=== PATIENT | female | born 1980 | race Caucasian/White ===

== ENCOUNTER → 2018-04-26 | Day surgery (SDC) | payer OTHER ==
[~2018-04-26] MED LIST: Albuterol/Ipratropium 3.0-0.5 MG/3 ML Neb Soln NEB ONE; Bupivacaine 0.5% 50 ML MDV ONE; Dextrose 5%-Lactated Ringers 1,000 ML IV SCH; Ibuprofen 600 MG Tab PO ONE; Lidocaine 1% with EPINEPHrine 1:100,000 50 ML MDV ONE; Midazolam 1 MG/ML 2 ML SDV ONE; Propofol 200 MG/20 ML SDV ONE; fentaNYL 100 MCG/2 ML SDV ONE
[2018-04-26] MEDS: ceFAZolin 2 GM in Premix Bag 1 BAG IV ONE ×2 (08:22→09:50)
--- NOTE | 2018-05-01 14:09 | OR ---
DATE OF PROCEDURE: 04/26/2018 PREOPERATIVE DIAGNOSIS: Probable lymphadenopathy, right inguinal area. POSTOPERATIVE DIAGNOSIS: Subfascial mass, right inguinal area. OPERATIVE PROCEDURE: Excision of subfascial mass, right inguinal area ([id number]). ANESTHESIA: Local plus IV sedation. SURGEON: Bennett Chopra MD POLYTECHNIC REGISTRAR: KELSI Genao. INDICATION FOR PROCEDURE: This is a 38-year-old status post previous excision of melanoma from her right lower back, presenting with a mass effect in the right inguinal area. This clinically appears to be most likely lymph node. It is somewhat painful and obviously suspicious for potential site of metastatic disease in that area. The size of the lesion is roughly the size of a peanut and, given this, a direct excisional biopsy appears to be most appropriate. Should this come back as a metastatic melanoma, we would then stage the patient with a CT scan of the chest, abdomen and pelvis, and a PET scan, and if no disease outside of the inguinal and/or iliac areas on the right side is identified, full lymph node dissection will subsequently be performed. Frozen section will not be obtained, as present standard of care within the pathologic community is not to do frozen sections on potentially metastatic melanomas or lymph nodes, due to some occasional false-positive reports. Potential risks otherwise including bleeding and infection were reviewed, and the patient wishes to proceed. DETAILS OF PROCEDURE: The patient was taken to the operating room and placed in the supine position. The area of concern had been marked on the skin level in the preoperative area. The lower abdomen and groin areas were then prepped and draped. After IV sedation was administered, anesthetized with 1% lidocaine mixed with Marcaine, a small incision over the palpable mass was then made and carried down through the skin and subcutaneous tissue. The mass appeared to be below the level of Dakota's fascia, and this was incised. The mass was then excised with a small rim of normal-appearing fat around it. Again, the lesion itself, upon its removal, was around 2 cm including the lesion and margin dimensions. The incision was then closed with some 3-0 and 4-0 Vicryl stitch deep and a 5-0 Vicryl subcuticular stitch. Dressing was applied. The patient was taken to the recovery room in a satisfactory condition. Of note, off the field, at the end of the procedure, the lesion was bisected. This did not appear to have any pigment within it and maybe something other than metastatic disease, i.e. could be some sort of fat necrosis in that area. We will await the pathologic findings and not proceed with any further staging at this point, awaiting the pathology on this resected specimen. Bennett Chopra MD /[id number]
== END ==
LOC: JP.SDS 07:34
PROVIDERS: ATTEND Surgery
DX: R59.0 Localized enlarged lymph nodes (principal); J45.909 Unspecified asthma, uncomplicated; E66.9 Obesity, unspecified; Z88.0 Allergy status to penicillin
CPT/HCPCS: 81025; 88305; A9270-GY; J0690; J2250; J2704; J3010; J3490; J7042; J7620-GY

== ENCOUNTER 2018-06-10 18:16 | Emergency (ER) | payer OTHER ==
[2018-06-10] MEDS ORDERED: Ketorolac 30 MG/ML SDV IVPUSH ONE (19:00)
[2018-06-10] MEDS ORDERED: Sodium Chloride 0.9% 1,000 ML IV SCH (19:00)
[2018-06-10] MEDS ORDERED: Ondansetron 4 MG/2 ML SDV IVPUSH ONE (19:00)
--- NOTE | 2018-06-10 19:05 | EDM.PDOC ---
ED HPI GENERAL MEDICAL PROBLEM - General Chief Complaint: Gastrointestinal Problem Stated Complaint: VOMITING, NECK PAIN, HEADACHE Time Seen by Provider: 06/10/18 18:45 Source of Information: Reports: Patient History Limitations: Reports: No Limitations - History of Present Illness INITIAL COMMENTS - FREE TEXT/NARRATIVE: 38-year-old female who has had 2 sons with gastroenteritis over the past week, nausea vomiting and diarrhea. She developed symptoms 3 days ago but they're very persistent, she think she's had intermittent fevers and has a persistent global headache and neck discomfort. She's been taking ibuprofen and acetaminophen "around the clock". Some abdominal cramping and pain in the epigastric area and intermittently in the left lower quadrant. No cough or shortness of breath, no cold symptoms. She is not seeing any blood in the emesis or diarrhea, she has not been traveling overseas. Onset: Sudden (Symptoms develop fairly suddenly 3 days ago) Associated Symptoms: Reports: Fever/Chills, Headaches, Malaise, Nausea/Vomiting , Weakness. 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: Psychiatric History: Reports: Anxiety Endocrine/Metabolic History: Reports: Hyperthyroidism Oncologic (Cancer) History: Reports: Other (See Below) Other Oncologic History: MELANOMA Dermatologic History: Reports: Eczema, Melanoma, Psoriasis - Infectious Disease History Infectious Disease History: Reports: Chicken Pox - Past Surgical History Female Surgical History: Reports: Section Dermatological Surgical History: Reports: Skin Biopsy, Other (See Below) Social & Family History - Family History Family Medical History: Noncontributory - Tobacco Use Smoking Status *Q: Never Smoker Second Hand Smoke Exposure: No - Caffeine Use Caffeine Use: Reports: Tea - Alcohol Use Days Per Week of Alcohol Use: 0 - Recreational Drug Use Recreational Drug Use: No ED ROS GENERAL - Review of Systems Review Of Systems: See Below Constitutional: Reports: Fever, Chills, Malaise, Decreased Appetite HEENT: Denies: Vision Change Respiratory: Denies: Shortness of Breath Cardiovascular: Denies: Chest Pain GI/Abdominal: Reports: Abdominal Pain, Diarrhea, Nausea, Vomiting. Denies: Hematemesis, Hematochezia : Reports: No Symptoms Skin: Reports: No Symptoms Neurological: Reports: Headache. Denies: Dizziness Psychiatric: Reports: No Symptoms ED EXAM, GI/ABD - Physical Exam Exam: See Below Exam Limited By: No Limitations General Appearance: Alert, No Apparent Distress (Patient is not distressed but does look significantly uncomfortable) Eyes: Bilateral: Normal Appearance (No jaundice) Respiratory/Chest: No Respiratory Distress, Lungs Clear Cardiovascular: Regular Rate, Rhythm. No: Tachycardia GI/Abdominal Exam: Soft, Tender (Patient is tender to palpation in the left lower quadrant without guarding or rebound), Abnormal Bowel Sounds (Pulses are very hypoactive) Extremities: No: Pedal Edema Neurological: Alert, Oriented, No Motor/Sensory Deficits Psychiatric: Flat Affect Skin Exam: Warm, Dry Course - Vital Signs Last Recorded V/S: Last Vital Signs Temp 97.3 F 06/10/18 18:45 Pulse 68 06/10/18 20:46 Resp 16 06/10/18 20:46 BP 103/57 L 06/10/18 20:46 Pulse Ox 98 06/10/18 20:46 - Orders/Labs/Meds Labs: Laboratory Tests 06/10/18 06/10/18 Range/Units 19:00 19:00 WBC 3.0 L (4.5-11.0) K/uL RBC 4.32 (3.30-5.50) M/uL Hgb 12.3 (12.0-15.0) g/dL Hct 36.7 (36.0-48.0) % MCV 85 (80-98) fL MCH 29 (27-31) pg MCHC 34 (32-36) % Plt Count 145 L (150-400) K/uL Neut % (Auto) 46 (36-66) % Lymph % (Auto) 35 (24-44) % Petroleum % (Auto) 16 H (2-6) % Eos % (Auto) 2 (2-4) % Baso % (Auto) 1 (0-1) % Sodium 138 L (140-148) mmol/L Potassium 3.3 L (3.6-5.2) mmol/L Chloride 104 (100-108) mmol/L Carbon Dioxide 25 (21-32) mmol/L Anion Gap 12.3 (5.0-14.0) mmol/L BUN 8 (7-18) mg/dL Creatinine 0.7 (0.6-1.0) mg/dL Est Cr Clr Drug Dosing 104.01 mL/min Estimated GFR (MDRD) > 60 (>60) Glucose 111 H (74-106) mg/dL Calcium 8.6 (8.5-10.1) mg/dL Total Bilirubin 0.5 (0.2-1.0) mg/dL AST 23 (15-37) U/L ALT 33 (12-78) U/L Alkaline Phosphatase 60 (46-116) U/L Total Protein 7.1 (6.4-8.2) g/dL Albumin 3.3 L (3.4-5.0) g/dL Globulin 3.8 H (2.3-3.5) g/dL Albumin/Globulin Ratio 0.9 L (1.2-2.2) Lipase 81 (73-393) U/L Meds: Medications Discontinued Medications Generic Name Dose Route Start Last Admin Trade Name Freq PRN Reason Stop Dose Admin Hydromorphone HCl 0.5 mg 06/10/18 19:42 06/10/18 20:16 Dilaudid IVPUSH 06/10/18 19:43 0.5 mg ONETIME ONE Administration Sodium Chloride 1,000 mls @ 1,000 mls/hr 06/10/18 19:00 06/10/18 19:13 Normal Saline IV 1,000 mls/hr ASDIRECTED NICOLE Administration Ketorolac Tromethamine 30 mg 06/10/18 19:00 06/10/18 19:13 Toradol IVPUSH 06/10/18 19:01 30 mg ONETIME ONE Administration Ondansetron HCl 4 mg 06/10/18 19:00 06/10/18 19:13 Zofran IVPUSH 06/10/18 19:01 4 mg ONETIME ONE Administration - Re-Assessments/Exams Free Text/Narrative Re-Assessment/Exam: 06/10/18 19:05 CBC, CMP and lipase were obtained, we will also obtain a stool sample if possible. Patient will be given 1 L of normal saline along with 4 mg of Zofran and 30 mg of Toradol, followed by IV Dilaudid if necessary. 06/10/18 20:11 CBC returned with white count of only 3000. Patient had only mild relief with the IV Toradol, so was given 0.5 mg of IV Dilaudid. After another hour the patient felt markedly better, was able to move her head freely with little discomfort. Her chemistry profile was normal other than a potassium of 3.3. Lipase is normal. Over the course of 2 hours the patient was unable to give us a stool sample and had no additional vomiting. She was asked to give this just 1 or 2 more days and advance diet slowly, return if worsening. Departure - Departure Time of Disposition: 20:58 Disposition: Home, Self-Care 01 Condition: Fair Clinical Impression: Gastroenteritis Headache Qualifiers: Headache type: tension-type Headache chronicity pattern: acute headache Intractability: not intractable Qualified Code(s): G44.209 - Tension-type headache, unspecified, not intractable - Discharge Information Instructions: Viral Gastroenteritis, Adult, [id number] Referrals: Jessica Curtis RN [Primary Care Provider] - Forms: ED Department Discharge Care Plan Goals: Rest, maintain fluid intake, and increase diet and activity as tolerated. Consider rechecking in 2-3 days if not improving satisfactorily, or return anytime sooner if worsening.
[2018-06-10] MEDS ORDERED: HYDROmorphone 0.5 MG/0.5 ML Syringe IVPUSH ONE (19:42)
== END 2018-06-10 20:58 | disposition home or self-care (01) ==
LOC: JP.ED 18:16
DX: K52.9 Noninfective gastroenteritis and colitis, unspecified (principal); G44.209 Tension-type headache, unspecified, not intractable; J45.909 Unspecified asthma, uncomplicated; F41.9 Anxiety disorder, unspecified; E05.90 Thyrotoxicosis, unspecified without thyrotoxic crisis or storm; Z88.0 Allergy status to penicillin
CPT/HCPCS: 36415; 80053; 83690; 85025; 96361; 96374; 96375; 99284; J1170; J1885; J2405; J7030

== ENCOUNTER 2021-09-20 13:42 | Emergency (ER) | payer BC, OTHER ==
[2021-09-20] MEDS ORDERED: Ketorolac 30 MG/ML SDV IM ONE (16:03)
[2021-09-20] MEDS ORDERED: hydrOXYzine HCL 100 MG/2 ML SDV IM ONE (16:03)
[2021-09-20] MEDS ORDERED: Ondansetron 4 MG Tab.DIS PO ONE (16:16)
[2021-09-20] MEDS ORDERED: Haloperidol Lactate 5 MG/ML SDV IVPUSH ONE (16:36)
[2021-09-20] MEDS ORDERED: diphenhydrAMINE 50 MG/ML SDV IVPUSH ONE (16:36)
[2021-09-20] MEDS ORDERED: Sodium Chloride 0.9% 10 ML Syringe FLUSH PRN (16:36)
[2021-09-20] MEDS ORDERED: Sodium Chloride 0.9% 1,000 ML IV SCH (16:45)
[2021-09-20] MEDS ORDERED: Metoclopramide 10 MG/2 ML SDV IV ONE (17:20)
== END 2021-09-20 18:33 | disposition home or self-care (01) ==
LOC: JP.ED 13:42
DX: G43.909 Migraine, unspecified, not intractable, without status migrainosus (principal); G44.209 Tension-type headache, unspecified, not intractable; E03.9 Hypothyroidism, unspecified; Z88.0 Allergy status to penicillin; Z79.899 Other long term (current) drug therapy; Z87.891 Personal history of nicotine dependence
CPT/HCPCS: 96361; 96372; 96374; 96375; 99283; J1200; J1630; J1885; J2765; J3410; J7030; Q0162

== ENCOUNTER 2024-09-03 20:18 | Emergency (ER) | payer BC, OTHER ==
[2024-09-03] MEDS: fentaNYL 100 MCG/2 ML SDV IVPUSH ONE (21:06)
[2024-09-03] MEDS: Ketorolac 30 MG/ML SDV IVPUSH ONE (21:20)
[2024-09-03] MEDS: methylPREDNISolone Sodium Succinate 125 MG/2 ML SDV IVPUSH ONE (21:20)
[2024-09-03] MEDS: Clindamycin in 0.9 % Sod Chlor 600 MG in Premix Bag 1 BAG IV ONE (21:20)
== END 2024-09-03 22:25 | disposition home or self-care (01) ==
LOC: JP.ED 20:18
DX: K04.7 Periapical abscess without sinus (principal); J45.909 Unspecified asthma, uncomplicated; E03.9 Hypothyroidism, unspecified; Z86.16 Personal history of COVID-19; Z87.891 Personal history of nicotine dependence; Z88.0 Allergy status to penicillin; Z79.51 Long term (current) use of inhaled steroids; Z79.890 Hormone replacement therapy; Z79.899 Other long term (current) drug therapy
CPT/HCPCS: 96365; 96375; 99283; J0737; J1885; J2919; J3010